=== PATIENT | female | born 1950 | race American Indian/Alaskan Native ===

== ENCOUNTER 2023-04-05 10:44 | Emergency (ER) | payer MEDICARE, MEDICAID, SELFPAY ==
--- NOTE | 2023-04-05 10:45 | DI.RAD_ITS ---
Exam(s) XR CHEST 2V PA LATERAL EXAM: XR CHEST 2V PA LATERAL CLINICAL HISTORY: Possible Aspiration TECHNIQUE: 2D digital imaging was performed. COMPARISON: No exams were available for comparison FINDINGS: Exam limited by body habitus, positioning and under penetration. Lungs not well inflated on the lat eral view. HEART: Normal size. Aorta: Not dilated. PULMONARY VASCULATURE: Normal. LUNGS: Calcification left mid chest. No infiltrate or pulmonary edema. PLEURAL SPACE: No pleural effusion or pneumothorax. BONE:Spine not well seen. Old right proximal humeral fracture. IMPRESSION: Limited exam. No acute abnormality. DATA REPOSITORY: RADIATION DOSE DELIVERED:
[2023-04-05 10:48] VITALS: BP 180/87; PULSE 83; RESP 18; TEMP 37.1; O2SAT 95
--- NOTE | 2023-04-05 10:48 | ED.GENADUL_ITS ---
Discharge Plan Disposition Patient Disposition: Senior Living Facility(SNF) Discharge Details Clinical Impression: Cough Primary Care Provider: Yohana Ferrari ED Provider: Varsha Gutierrez [place] Meds and New Rx's Prescriptions: No Action acetaminophen 650 mg Tablet 1,300 mg PO TID aspirin [Aspir-81] 81 mg Tablet,Delayed Release (Dr/Ec) 81 mg PO DAILY calcium carbonate [Antacid (calcium carbonate)] 200 mg calcium (500 mg) Tablet,Chewable 200 mg PO TID Rx Instructions: with meals guaifenesin 600 mg Tablet Extended Release 600 mg PO BID haloperidol 0.5 mg Tablet 0.5 mg PO Q6H PRN ipratropium-albuterol [DuoNeb] 0.5 mg-3 mg(2.5 mg base)/3 mL Solution For Nebulization 3 ml INHALATION Q6H PRN lidocaine [Lidoderm] 5 % Adhesive Patch,Medicated 1 patch transdermal DAILY lisinopril 5 mg tablet 5 mg PO DAILY metoprolol tartrate 50 mg Tablet 50 mg PO BID sennosides-docusate sodium [Senokot-S] 8.6-50 mg Tablet 1 tab PO BID albuterol sulfate 90 mcg/actuation Hfa Aerosol Inhaler 2 puff INHALATION Q4H PRN atorvastatin 20 mg tablet 20 mg PO DAILY citalopram 20 mg Tablet 20 mg PO DAILY fluticasone propion-salmeterol 250-50 mcg/dose Blister With Device 1 ea INHALATION BID hydralazine 10 mg tablet 10 mg PO TID hydroxyzine HCl 50 mg Tablet 50 mg PO BID lamotrigine 250 mg tablet extended release 24hr 250 mg PO DAILY loperamide 2 mg Capsule 2 mg PO Q6H PRN lorazepam 1 mg tablet 1 mg PO Q6H Muscle Rub 15-10 % Cream 1 applic TOPICAL TID PRN nystatin 100,000 unit/gram Cream 1 applic TOPICAL BID olanzapine 5 mg Tablet 10 mg PO BID ondansetron 4 mg Tablet,Disintegrating 4 mg PO Q6H PRN pantoprazole 20 mg tablet,delayed release (DR/EC) 20 mg PO BID Patient Comments: take 1 tablet by mouth twice a day polyethylene glycol 3350 17 gram/dose Powder 17 g PO DAILY prazosin 2 mg Capsule 4 mg PO HS quetiapine 200 mg tablet 200 mg PO BID levothyroxine [Synthroid] 125 mcg Tablet 125 mcg PO QAM Discharge Instructions Instructions: Acute Cough (ED) Additional Instructions: At this time x-ray shows no evidence of aspiration no foreign body. Patient is remained hemodynamically stable throughout stay. Follow up with primary care provider in 3-5 days. Return to ED sooner if any worsening or concerns. Increase oral fluids. Referrals: Yohana Ferrari [Primary Care Provider] - Medical Decision Making Patient is a transfer from the [facility] for possible aspiration of a cough drop prior to arrival. Patient denies that she choked on the cough drop. She is in no respiratory distress, is not coughing denies having a cough, lung sounds are clear to auscultation bilaterally. X-ray two-view ordered which is within normal limits and nothing acute. Patient to be transferred back to the [facility] via EMS. This text was generated using [employer] system, please disregard any oddities of phrase or misspellings. Imaging Data Radiologic Study: Imaging: X-Ray Radiologist's impression: EXAM: XR CHEST 2V PA LATERAL CLINICAL HISTORY: Possible Aspiration TECHNIQUE: 2D digital imaging was performed. COMPARISON: No exams were available for comparison FINDINGS: Exam limited by body habitus, positioning and under penetration. Lungs not well inflated on the lateral view. HEART: Normal size. Aorta: Not dilated. PULMONARY VASCULATURE: Normal. LUNGS: Calcification left mid chest. No infiltrate or pulmonary edema. PLEURAL SPACE: No pleural effusion or pneumothorax. BONE:Spine not well seen. Old right proximal humeral fracture. IMPRESSION: Limited exam. No acute abnormality. HPI General Mode of arrival: EMS . Date/Time Provider Initiated Documentation: 04/05/23 10:48 . Limitations to Documentation: no limitations . Information obtained by: patient, RN/MD, EMS, RN notes reviewed and old records reviewed . HPI Narrative: 72-year-old female presents via EMS from the [facility] with chief complaint of possible choking on cough drop prior to arrival. Patient denies choking on a cough drop. She is in no respiratory distress at this time. She denies cough. They are requesting a chest x-ray. Vital signs are stable. Related Data Home Medications Medication Instructions Recorded Confirmed acetaminophen 650 mg tablet 1,300 mg PO TID 04/05/23 04/05/23 albuterol sulfate 90 mcg/actuation 2 puff inhalation Q4H PRN 04/05/23 04/05/23 aerosol inhaler aspirin 81 mg tablet,delayed 81 mg PO DAILY 04/05/23 04/05/23 release atorvastatin 20 mg tablet 20 mg PO DAILY 04/05/23 04/05/23 calcium carbonate 200 mg calcium 200 mg PO TID 04/05/23 04/05/23 (500 mg) chewable tablet (Antacid (calcium carbonate)) citalopram 20 mg tablet 20 mg PO DAILY 04/05/23 04/05/23 fluticasone 250 mcg-salmeterol 50 1 ea inhalation BID 04/05/23 04/05/23 mcg/dose blistr powdr for inhalation guaifenesin 600 mg tablet,extended 600 mg PO BID 04/05/23 04/05/23 release haloperidol 0.5 mg tablet 0.5 mg PO Q6H PRN 04/05/23 04/05/23 hydralazine 10 mg tablet 10 mg PO TID 04/05/23 04/05/23 hydroxyzine HCl 50 mg tablet 50 mg PO BID 04/05/23 04/05/23 ipratropium 0.5 mg-albuterol 3 mg 3 ml inhalation Q6H PRN 04/05/23 04/05/23 (2.5 mg base)/3 mL nebulization soln lamotrigine 250 mg tablet,extended 250 mg PO DAILY 04/05/23 04/05/23 release 24 hr levothyroxine 125 mcg tablet 125 mcg PO QAM 04/05/23 04/05/23 (Synthroid) lidocaine 5 % topical patch 1 patch transdermal DAILY 04/05/23 04/05/23 (Lidoderm) lisinopril 5 mg tablet 5 mg PO DAILY 04/05/23 04/05/23 loperamide 2 mg capsule 2 mg PO Q6H PRN 04/05/23 04/05/23 lorazepam 1 mg tablet 1 mg PO Q6H 04/05/23 04/05/23 methyl salicylate 15 %-menthol 10 1 applic topical TID PRN 04/05/23 04/05/23 % topical cream (Muscle Rub) metoprolol tartrate 50 mg tablet 50 mg PO BID 04/05/23 04/05/23 nystatin 100,000 unit/gram topical 1 applic topical BID 04/05/23 04/05/23 cream olanzapine 5 mg tablet 10 mg PO BID 04/05/23 04/05/23 ondansetron 4 mg disintegrating 4 mg PO Q6H PRN 04/05/23 04/05/23 tablet pantoprazole 20 mg tablet,delayed 20 mg PO BID 04/05/23 04/05/23 release polyethylene glycol 3350 17 17 g PO DAILY 04/05/23 04/05/23 gram/dose oral powder prazosin 2 mg capsule 4 mg PO HS 04/05/23 04/05/23 quetiapine 200 mg tablet 200 mg PO BID 04/05/23 04/05/23 sennosides 8.6 mg-docusate sodium 1 tab PO BID 04/05/23 04/05/23 50 mg tablet (Senokot-S) Allergies Allergy/AdvReac Type Severity Reaction Status Date / Time amoxicillin AdvReac Unknown Unverified 04/05/23 11:25 aspirin AdvReac Unknown Unverified 04/05/23 11:30 butalbital AdvReac Unknown Unverified 04/05/23 11:28 codeine AdvReac Unknown Unverified 04/05/23 11:29 erythromycin base AdvReac Unknown Unverified 04/05/23 11:29 mirtazapine AdvReac Unknown Unverified 04/05/23 11:29 NSAIDS (Non-Steroidal AdvReac Unknown Unverified 04/05/23 11:30 Anti-Inflamma Sulfa (Sulfonamide AdvReac Unknown Unverified 04/05/23 11:31 Antibiotics) General Stated Complaint: RespSymp FANTASMA: 4 Review of Systems All systems reviewed & are unremarkable except as noted in HPI and below Respiratory Respiratory: Reports as per HPI PFSH All Active Problems (Updated 04/05/23 @ 11:33 by Varsha Gutierrez NP) Cough (Acute) Social History Smoking/Tobacco Use Status: Never Smoking risk assessment performed?: Yes Alcohol Intake: never Substance use type: does not use Exam Narrative Exam Narrative: Constitutional: Alert and oriented x3. Appears stated age. Normal body habitus. Head: Normocephalic, no trauma. Eyes: Pupils PERRL, Red reflex noted, EOM's intact. Eyelids symmetrical without lesions, discharge, or swelling. ENT: Bilateral TM's WNL, External ear normal to inspection, no mastoid TTP, swelling, or erythema, Nasal turbinates WNL, no nasal discharge. Normal dentition, Posterior pharynx WNL, no exudate. Chest: RRR, Normal S1, S2, distal pulses intact. Resp: Lungs clear to auscultation bilaterally, no wheezes, rales, or rhonchi. Abdomen: Soft, non-distended, Normoactive bowel sounds all 4 quads. Musculoskeletal: Normal gait, 5/5 strength to all four extremities. Skin: No suspicious rashes or lesions. Capillary refill less than 2 sec. Neurologic: Cranial nerves II-XII intact. Alert and oriented x 3. Motor: No deficits noted. Sensory: Intact bilaterally all 4 extremities. Reflexes: DTR's intact bilaterally.. Hematologic/Lymphatic: No ecchymosis, no lymphadenopathy. Course Vital Signs Vital signs: Respiratory Effort Normal, Non-Labored 04/05/23 10:48
== END 2023-04-05 11:40 | disposition skilled nursing facility (03) ==
PROVIDERS: Emergency Provider Registered Nurse Emergency; PCP Legal Medicine
DX: R05.9 Cough, unspecified (principal)
CPT/HCPCS: 80053; 82306; 99282; 71046; 82607; 82728; 82746; 83036; 83540; 83550; 83735; 84443; 85025; 99283

== ENCOUNTER 2023-04-05 17:39 | Outpatient (REF) | payer MEDICARE, MEDICAID, SELFPAY ==
[2023-04-05 17:52] LABS: Abs Immature Grans 0.03 10^3/uL (0.0-0.06); Absolute Basophil Count 0.03 10^3/uL (0.0-0.2); Absolute Eosinophil Count 0.02 10^3/uL (0.0-0.7); Absolute Lymphocyte Count 0.97 10^3/uL (1.2-3.4); Absolute Monocyte Count 0.39 10^3/uL (0.1-0.8); Absolute Neutrophil Count 5.74 10^3/uL (1.2-6.7); Basophils % 0.4; Eosinophils % 0.3; HCT 30.8 % (36.0-46.0); HGB 10.3 g/dL (11.2-15.7); Immature Grans % 0.4; Lymphocytes % 13.5; MCH 29.9 pg (27.0-33.0); MCHC 33.4 % (32.0-36.0); MCV 89 fL (80-95); MPV 8.2 fL (8.0-11.0); Monocytes % 5.4; Platelet Count 414 10^3/uL (130-400); RBC 3.45 10^6/uL (3.93-5.22); RDW 12.5 % (11.7-14.6); WBC 7.18 10^3/uL (4.4-10.8)
[2023-04-05 18:18] LABS: Hemoglobin A1C 5.9 % (<5.7)
[2023-04-05 18:21] LABS: Iron 74 ug/dL (50-170); Total Iron Binding Capacity 289 ug/dL (250-450); Transferrin Sat 26 % (15-50)
[2023-04-05 18:44] LABS: Vitamin D 25 Total 7.2 ng/mL (30-100)
[2023-04-05 18:46] LABS: ALT 19 U/L (14-59); AST 12 U/L (15-37); Albumin 4.1 g/dL (3.4-5.0); Alkaline Phosphatase 89 U/L (46-116); Anion Gap 8.7 mmol/L (3-11); BUN 11 mg/dL (7-18); Bilirubin, Total 0.4 mg/dL (0.2-1.0); CO2 27.3 mmol/L (21.0-32.0); CREATININE 0.8 mg/dL (0.55-1.02); Calcium 9.6 mg/dL (8.5-10.1); Chloride 96 mmol/L (98-107); Estimated GFR 78.72 (mL/min/1.73m2); Ferritin 149 ng/mL (8-252); Folate 17.4 ng/mL (8.6-20.0); Glucose 135 mg/dL (74-106); Magnesium 1.8 mg/dL (1.8-2.4); Potassium 4.9 mmol/L (3.5-5.1); Sodium 132 mmol/L (136-145); TSH (W/Ref FT4) 1.06 uIU/mL (0.36-3.74); Total Protein 7.3 g/dL (6.4-8.2); Vitamin B12 463 pg/mL (193-986)
== END 2023-04-05 17:40 | disposition home or self-care (01) ==
LOC: NCHCN 17:39
PROVIDERS: PCP Legal Medicine; Visit Provider Nurse Practitioner Gerontology
DX: D52.9 Folate deficiency anemia, unspecified (principal); R73.09 Other abnormal glucose; R53.82 Chronic fatigue, unspecified; E55.9 Vitamin D deficiency, unspecified; I11.0 Hypertensive heart disease with heart failure; D51.9 Vitamin B12 deficiency anemia, unspecified
CPT/HCPCS: 80053; 82306; 82607; 82728; 82746; 83036; 83540; 83550; 83735; 84443; 85025

== ENCOUNTER 2023-05-01 19:06 | Outpatient (REF) | payer MEDICARE, MEDICAID, SELFPAY ==
[2023-05-01 19:53] LABS: Abs Immature Grans 0.02 10^3/uL (0.0-0.06); Absolute Basophil Count 0.03 10^3/uL (0.0-0.2); Absolute Eosinophil Count 0.09 10^3/uL (0.0-0.7); Absolute Lymphocyte Count 1.57 10^3/uL (1.2-3.4); Absolute Monocyte Count 0.43 10^3/uL (0.1-0.8); Absolute Neutrophil Count 3.25 10^3/uL (1.2-6.7); Basophils % 0.6; Eosinophils % 1.7; HCT 29.8 % (36.0-46.0); HGB 9.4 g/dL (11.2-15.7); Immature Grans % 0.4; Lymphocytes % 29.1; MCH 29.8 pg (27.0-33.0); MCHC 31.5 % (32.0-36.0); MCV 95 fL (80-95); Neutrophils % 60.2; Platelet Count 294 10^3/uL (130-400); RBC 3.15 10^6/uL (3.93-5.22); RDW 13.1 % (11.7-14.6); RDW-SD 45.1 fL; WBC 5.39 10^3/uL (4.4-10.8)
== END 2023-05-01 19:07 | disposition home or self-care (01) ==
LOC: LBN 19:06
PROVIDERS: PCP Legal Medicine; Visit Provider Nurse Practitioner Gerontology
DX: J44.9 Chronic obstructive pulmonary disease, unspecified (principal); Z29.8 Encounter for other specified prophylactic measures; R53.82 Chronic fatigue, unspecified; D52.9 Folate deficiency anemia, unspecified
CPT/HCPCS: 85025

== ENCOUNTER 2023-07-04 15:14 | Outpatient (REF) | payer MEDICARE, MEDICAID, SELFPAY ==
[2023-07-04 21:10] LABS: ALT 15 U/L (14-59); AST 11 U/L (15-37); Alkaline Phosphatase 95 U/L (46-116); Anion Gap 8.4 mmol/L (3-11); BUN 10 mg/dL (7-18); Bilirubin, Total 0.3 mg/dL (0.2-1.0); CO2 27.6 mmol/L (21.0-32.0); CREATININE 0.9 mg/dL (0.55-1.02); Calcium 8.9 mg/dL (8.5-10.1); Chloride 108 mmol/L (98-107); Estimated GFR 68.35 (mL/min/1.73m2); Glucose 137 mg/dL (74-106); NT-proBNP 701 pg/mL (<300); Potassium 4.2 mmol/L (3.5-5.1); Sodium 144 mmol/L (136-145); Total Protein 5.7 g/dL (6.4-8.2)
[2023-07-04 22:25] LABS: Vitamin D 25 Total 17.6 ng/mL (30-100)
== END 2023-07-04 15:15 | disposition home or self-care (01) ==
LOC: LBN 15:14
PROVIDERS: PCP Legal Medicine; Visit Provider Nurse Practitioner Gerontology
DX: I50.9 Heart failure, unspecified (principal); G89.4 Chronic pain syndrome; E55.9 Vitamin D deficiency, unspecified; R79.89 Other specified abnormal findings of blood chemistry
CPT/HCPCS: 80053; 82306; 83880

== ENCOUNTER 2023-09-27 19:37 | Outpatient (REF) | payer MEDICARE, MEDICAID, SELFPAY ==
[2023-09-27 18:32] LABS: Abs Immature Grans 0.02 10^3/uL (0.0-0.06); Absolute Basophil Count 0.04 10^3/uL (0.0-0.2); Absolute Eosinophil Count 0.02 10^3/uL (0.0-0.7); Absolute Lymphocyte Count 1.21 10^3/uL (1.2-3.4); Absolute Monocyte Count 0.39 10^3/uL (0.1-0.8); Absolute Neutrophil Count 3.14 10^3/uL (1.2-6.7); Basophils % 0.8; Eosinophils % 0.4; HCT 36.2 % (36.0-46.0); HGB 11.5 g/dL (11.2-15.7); Immature Grans % 0.4; Lymphocytes % 25.1; MCH 28.8 pg (27.0-33.0); MCHC 31.8 % (32.0-36.0); MCV 91 fL (80-95); Monocytes % 8.1; Neutrophils % 65.2; RBC 3.99 10^6/uL (3.93-5.22); RDW 13.2 % (11.7-14.6); WBC 4.82 10^3/uL (4.4-10.8)
[2023-09-27 19:00] LABS: Platelet Count 342 10^3/uL (130-400)
[2023-09-27 19:35] LABS: ALT 18 U/L (14-59); AST 15 U/L (15-37); Albumin 4.1 g/dL (3.4-5.0); Alkaline Phosphatase 110 U/L (46-116); Anion Gap 11.5 mmol/L (3-11); BUN 16 mg/dL (7-18); Bilirubin, Total 0.4 mg/dL (0.2-1.0); CO2 25.5 mmol/L (21.0-32.0); Calcium 9.6 mg/dL (8.5-10.1); Chloride 108 mmol/L (98-107); Estimated GFR 59.86 (mL/min/1.73m2); Glucose 112 mg/dL (74-106); NT-proBNP 635 pg/mL (<300); Potassium 3.7 mmol/L (3.5-5.1); Sodium 145 mmol/L (136-145); Total Protein 7.5 g/dL (6.4-8.2)
== END 2023-09-27 19:38 | disposition home or self-care (01) ==
LOC: LBN 19:37
PROVIDERS: PCP Legal Medicine; Visit Provider Nurse Practitioner Gerontology
DX: G89.4 Chronic pain syndrome (principal); J44.9 Chronic obstructive pulmonary disease, unspecified; E78.5 Hyperlipidemia, unspecified; E11.9 Type 2 diabetes mellitus without complications; E78.49 Other hyperlipidemia
CPT/HCPCS: 80053; 83880; 85025

== ENCOUNTER 2023-12-11 13:16 | Emergency (ER) | payer MEDICARE, MEDICAID, SELFPAY ==
[2023-12-11 13:15] VITALS: BP 135/53; PULSE 75; RESP 16; TEMP 36.8; O2SAT 97
[2023-12-11 16:40] VITALS: BP 139/71; PULSE 79; RESP 14; TEMP 37; O2SAT 94
--- NOTE | 2023-12-11 16:51 | ED.GENADUL_ITS ---
HPI General Mode of arrival: EMS . Date/Time Provider Initiated Documentation: 12/11/23 13:59 . Limitations to Documentation: no limitations . Information obtained by: patient . History of Present Illness 73 year old F presents to the emergency department with the chief complaint of choked on beets earlier, described as mild, Patient started experiencing this hour(s) (4) and it has been now resolved. No relieving factors improve symptom(s), No exacerbating factors reported . Patient notes no other symptoms.; denies chest pain, fever/chills, nausea/vomiting and shortness of breath. Patient did receive the following treatments prior to arrival, none Related Data Home Medications Medication Instructions Recorded Confirmed acetaminophen 650 mg tablet 1,300 mg PO TID 04/05/23 11/23/23 albuterol sulfate 90 mcg/actuation 2 puff inhalation Q4H PRN 04/05/23 11/23/23 aerosol inhaler aspirin 81 mg tablet,delayed 81 mg PO DAILY 04/05/23 11/23/23 release atorvastatin 20 mg tablet 20 mg PO DAILY 04/05/23 11/23/23 calcium carbonate 200 mg calcium 200 mg PO TID 04/05/23 11/23/23 (500 mg) chewable tablet (Antacid (calcium carbonate)) citalopram 20 mg tablet 20 mg PO DAILY 04/05/23 11/23/23 fluticasone 250 mcg-salmeterol 50 1 ea inhalation BID 04/05/23 11/23/23 mcg/dose blistr powdr for inhalation guaifenesin 600 mg tablet,extended 600 mg PO BID 04/05/23 11/23/23 release haloperidol 0.5 mg tablet 0.5 mg PO Q6H PRN 04/05/23 11/23/23 hydralazine 10 mg tablet 10 mg PO TID 04/05/23 11/23/23 hydroxyzine HCl 50 mg tablet 50 mg PO BID 04/05/23 11/23/23 ipratropium 0.5 mg-albuterol 3 mg 3 ml inhalation Q6H PRN 04/05/23 11/23/23 (2.5 mg base)/3 mL nebulization soln lamotrigine 250 mg tablet,extended 250 mg PO DAILY 04/05/23 11/23/23 release 24 hr levothyroxine 125 mcg tablet 125 mcg PO QAM 04/05/23 11/23/23 (Synthroid) lidocaine 5 % topical patch 1 patch transdermal DAILY 04/05/23 11/23/23 (Lidoderm) lisinopril 5 mg tablet 5 mg PO DAILY 04/05/23 11/23/23 loperamide 2 mg capsule 2 mg PO Q6H PRN 04/05/23 11/23/23 lorazepam 1 mg tablet 1 mg PO Q6H 04/05/23 11/23/23 methyl salicylate 15 %-menthol 10 1 applic topical TID PRN 04/05/23 11/23/23 % topical cream (Muscle Rub) metoprolol tartrate 50 mg tablet 50 mg PO BID 04/05/23 11/23/23 nystatin 100,000 unit/gram topical 1 applic topical BID 04/05/23 11/23/23 cream olanzapine 5 mg tablet 10 mg PO BID 04/05/23 11/23/23 ondansetron 4 mg disintegrating 4 mg PO Q6H PRN 04/05/23 11/23/23 tablet pantoprazole 20 mg tablet,delayed 20 mg PO BID 04/05/23 11/23/23 release polyethylene glycol 3350 17 17 g PO DAILY 04/05/23 11/23/23 gram/dose oral powder prazosin 2 mg capsule 4 mg PO HS 04/05/23 11/23/23 quetiapine 200 mg tablet 200 mg PO BID 04/05/23 11/23/23 sennosides 8.6 mg-docusate sodium 1 tab PO BID 04/05/23 11/23/23 50 mg tablet (Senokot-S) Allergies Allergy/AdvReac Type Severity Reaction Status Date / Time amoxicillin AdvReac Unknown Unverified 12/11/23 13:18 aspirin AdvReac Unknown Unverified 12/11/23 13:18 butalbital AdvReac Unknown Unverified 12/11/23 13:18 codeine AdvReac Unknown Unverified 12/11/23 13:18 erythromycin base AdvReac Unknown Unverified 12/11/23 13:18 mirtazapine AdvReac Unknown Unverified 12/11/23 13:18 NSAIDS (Non-Steroidal AdvReac Unknown Unverified 12/11/23 13:18 Anti-Inflamma Sulfa (Sulfonamide AdvReac Unknown Unverified 12/11/23 13:18 Antibiotics) General Stated Complaint: GenMedical FANTASMA: 4 Review of Systems All systems reviewed & are unremarkable except as noted in HPI and below Constitutional Constitutional: Denies chills, Denies fever(s) and Denies weakness Cardiovascular Cardiovascular: Denies chest pain and Denies dyspnea Respiratory Respiratory: Denies cough and Denies dyspnea Gastrointestinal Gastrointestinal: Denies abdominal pain, Denies nausea and Denies vomiting Integumentary/Breasts Skin/Breast: Denies rash Neurologic Neurologic: Denies weakness Exam Const General: no acute distress Orientation: alert HENNM Head: normal to inspection Ears: external ears normal General nose exam: external nose normal Eyes General: appearance normal, both eyes and all related structures Neck Neck: normal visual inspection Resp Effort & Inspection: normal respiratory effort and able to speak in complete sentences Cardio Rate: regular rate Skin General skin exam: no rashes or lesions noted Neuro General: patient alert and patient oriented x3 Extrem General: normal to inspection Psych Mental Status: mental status grossly normal Course Vital Signs Vital signs: Vital Signs Temperature 36.8 C 12/11/23 13:15 Pulse 75 12/11/23 13:15 Respiratory Rate 16 12/11/23 13:15 Blood Pressure 135/53 L 12/11/23 13:15 Pulse Oximetry 97 12/11/23 13:15 Temperature 37.0 C 12/11/23 16:40 Temperature Source Tympanic 12/11/23 16:40 Pulse 79 12/11/23 16:40 Respiratory Rate 14 12/11/23 16:40 Blood Pressure 139/71 12/11/23 16:40 Pulse Oximetry 94 12/11/23 16:40 Oxygen Delivery Method Room Air 12/11/23 16:40 Oxygen Flow Rate 0 12/11/23 16:40 Medical Decision Making 73 yo female with hx of hld, who has trouble swallowing and is on a soft diet and resides at the [facility], comes in after she was eating beets and choked and had trouble swallowing. She denies dyspnea, abdominal pain, chest pain, cough. She waited in the wait room due to capacity for a few hours. She denies any symptoms and requests to go back to the [facility]. She has clear lungs, soft abdomen, is drinking water here without any issues so doubt impaction or retained foreign body, do not feel imaging indicated. Will d/c back to the [facility] Differential Diagnosis Differential Diagnosis: choking episode, dysphagia Quality:SDOH Health Related Social Needs: No Data to Display PFSH All Active Problems (Updated 12/11/23 @ 16:57 by Jasper Manuel MD) Swallowing problem (Acute) Social History Smoking/Tobacco Use Status: Never Smoking risk assessment performed?: Yes Alcohol Intake: never Substance use type: does not use Discharge Plan Disposition Patient Disposition: [facility](SNF) Condition: Stable Discharge Details Clinical Impression: Swallowing problem Primary Care Provider: Yohana Ferrari ED Provider: Jasper Manuel Home Meds and New Rx's Prescriptions: Continued acetaminophen 650 mg Tablet 1,300 mg PO TID aspirin 81 mg Tablet,Delayed Release (Dr/Ec) 81 mg PO DAILY calcium carbonate [Antacid (calcium carbonate)] 200 mg calcium (500 mg) Tablet,Chewable 200 mg PO TID Rx Instructions: with meals guaifenesin 600 mg Tablet Extended Release 600 mg PO BID haloperidol 0.5 mg Tablet 0.5 mg PO Q6H PRN ipratropium-albuterol 0.5 mg-3 mg(2.5 mg base)/3 mL Solution For Nebulization 3 ml INHALATION Q6H PRN lidocaine [Lidoderm] 5 % Adhesive Patch,Medicated 1 patch transdermal DAILY lisinopril 5 mg tablet 5 mg PO DAILY metoprolol tartrate 50 mg Tablet 50 mg PO BID sennosides-docusate sodium [Senokot-S] 8.6-50 mg Tablet 1 tab PO BID albuterol sulfate 90 mcg/actuation Hfa Aerosol Inhaler 2 puff INHALATION Q4H PRN atorvastatin 20 mg tablet 20 mg PO DAILY citalopram 20 mg Tablet 20 mg PO DAILY fluticasone propion-salmeterol 250-50 mcg/dose Blister With Device 1 ea INHALATION BID hydralazine 10 mg tablet 10 mg PO TID hydroxyzine HCl 50 mg Tablet 50 mg PO BID lamotrigine 250 mg tablet extended release 24hr 250 mg PO DAILY loperamide 2 mg Capsule 2 mg PO Q6H PRN lorazepam 1 mg tablet 1 mg PO Q6H Muscle Rub 15-10 % Cream 1 applic TOPICAL TID PRN nystatin 100,000 unit/gram Cream 1 applic TOPICAL BID olanzapine 5 mg Tablet 10 mg PO BID ondansetron 4 mg Tablet,Disintegrating 4 mg PO Q6H PRN pantoprazole 20 mg tablet,delayed release (DR/EC) 20 mg PO BID Patient Comments: take 1 tablet by mouth twice a day polyethylene glycol 3350 17 gram/dose Powder 17 g PO DAILY prazosin 2 mg Capsule 4 mg PO HS quetiapine 200 mg tablet 200 mg PO BID levothyroxine [Synthroid] 125 mcg Tablet 125 mcg PO QAM Discharge Instructions Additional Instructions: follow up with your primary care provider within 1-2 weeks if you feel more ill, have difficulty breathing or persistent vomiting return to the emergency department
[2023-12-11 17:29] VITALS: RESP 18
== END 2023-12-11 17:31 | disposition skilled nursing facility (03) ==
PROVIDERS: Emergency Provider Emergency Medicine; PCP Legal Medicine
DX: R13.10 Dysphagia, unspecified (principal)
CPT/HCPCS: 99281; 99282

== ENCOUNTER 2024-03-25 18:08 | Outpatient (REF) | payer MEDICARE, MEDICAID, SELFPAY ==
[2024-03-25 19:22] LABS: TSH (W/Ref FT4) 0.88 uIU/mL (0.36-3.74)
[2024-03-25 20:14] LABS: Vitamin D 25 Total 14.2 ng/mL (30-100)
== END 2024-03-25 18:09 | disposition home or self-care (01) ==
LOC: LBN 18:08
PROVIDERS: PCP Legal Medicine; Visit Provider Nurse Practitioner Gerontology
DX: E03.9 Hypothyroidism, unspecified (principal); E55.9 Vitamin D deficiency, unspecified; R53.82 Chronic fatigue, unspecified; G89.4 Chronic pain syndrome
CPT/HCPCS: 82306; 84443

== ENCOUNTER 2024-12-23 17:44 | Outpatient (REF) | payer MEDICARE, MEDICAID, SELFPAY ==
[2024-12-23 19:11] LABS: Abs Immature Grans 0.03 10^3/uL (0.0-0.06); Absolute Basophil Count 0.06 10^3/uL (0.0-0.2); Absolute Eosinophil Count 0.18 10^3/uL (0.0-0.7); Absolute Lymphocyte Count 1.72 10^3/uL (1.2-3.4); Absolute Monocyte Count 0.61 10^3/uL (0.1-0.8); Absolute Neutrophil Count 3.79 10^3/uL (1.2-6.7); Basophils % 0.9 %; Eosinophils % 2.8 %; HCT 29.5 % (36.0-46.0); HGB 9.3 g/dL (11.2-15.7); Immature Grans % 0.5 %; Lymphocytes % 26.9 %; MCH 29.8 pg (27.0-33.0); MCHC 31.5 % (32.0-36.0); MCV 95 fL (80-95); MPV 8.9 fL (8.0-11.0); Monocytes % 9.5 %; Neutrophils % 59.4 %; Platelet Count 322 10^3/uL (130-400); RBC 3.12 10^6/uL (3.93-5.22); RDW 13.6 % (11.7-14.6); RDW-SD 46.9 fL; WBC 6.39 10^3/uL (4.4-10.8)
[2024-12-23 19:27] LABS: ALT 20 U/L (14-59); AST 13 U/L (15-37); Alkaline Phosphatase 77 U/L (46-116); Anion Gap 5.9 mmol/L (3-11); BUN 11 mg/dL (7-18); Bilirubin, Total 0.25 mg/dL (0.2-1.0); CO2 28.1 mmol/L (21.0-32.0); CREATININE 0.8 mg/dL (0.55-1.02); Calcium 8.5 mg/dL (8.5-10.1); Chloride 105 mmol/L (98-107); Estimated GFR 77.75 (mL/min/1.73m2); Glucose 105 mg/dL (74-106); Potassium 4.6 mmol/L (3.5-5.1); Sodium 139 mmol/L (136-145); Total Protein 5.6 g/dL (6.4-8.2)
[2024-12-26 12:27] LABS: Lamotrigine 3.5 mcg/mL (3.0-15.0)
== END 2024-12-23 17:45 | disposition home or self-care (01) ==
LOC: LBN 17:44
PROVIDERS: PCP Legal Medicine; Visit Provider Nurse Practitioner Gerontology
DX: E87.6 Hypokalemia (principal)
CPT/HCPCS: 80053; 80175; 85025

== ENCOUNTER 2025-02-28 16:40 | Outpatient (REF) | payer MEDICARE, MEDICAID, SELFPAY ==
[2025-02-28 19:30] LABS: Abs Immature Grans 0.06 10^3/uL (0.0-0.06); Absolute Basophil Count 0.03 10^3/uL (0.0-0.2); Absolute Eosinophil Count 0.11 10^3/uL (0.0-0.7); Absolute Lymphocyte Count 1.28 10^3/uL (1.2-3.4); Absolute Monocyte Count 0.69 10^3/uL (0.1-0.8); Absolute Neutrophil Count 8.48 10^3/uL (1.2-6.7); Basophils % 0.3 %; HCT 28.4 % (36.0-46.0); HGB 8.9 g/dL (11.2-15.7); Immature Grans % 0.6 %; MCH 30.9 pg (27.0-33.0); MCHC 31.3 % (32.0-36.0); MCV 99 fL (80-95); MPV 9.2 fL (8.0-11.0); Monocytes % 6.5 %; Neutrophils % 79.6 %; Platelet Count 374 10^3/uL (130-400); RBC 2.88 10^6/uL (3.93-5.22); RDW 15.8 % (11.7-14.6); RDW-SD 56.4 fL; WBC 10.65 10^3/uL (4.4-10.8)
[2025-02-28 19:34] LABS: Bilirubin Small (Negative); Blood Negative (Negative); Clarity Clear (Clear); Glucose Negative (Negative); Ketones 15 mg/dL (Negative); Leukocyte Esterase Negative (Negative); Nitrite Negative (Negative); Specific Gravity 1.025 (1.005-1.025); Urobilinogen 0.2 mg/dL (Up to 0.2)
[2025-02-28 19:55] LABS: ALT 18 U/L (14-59); AST 19 U/L (15-37); Albumin 2.3 g/dL (3.4-5.0); Alkaline Phosphatase 123 U/L (46-116); Anion Gap 11.9 mmol/L (3-11); BUN 47 mg/dL (7-18); Bilirubin, Total 0.3 mg/dL (0.2-1.0); CO2 23.1 mmol/L (21.0-32.0); CREATININE 1.5 mg/dL (0.55-1.02); Calcium 9.3 mg/dL (8.5-10.1); Chloride 107 mmol/L (98-107); Estimated GFR 36.57 (mL/min/1.73m2); Glucose 81 mg/dL (74-106); Magnesium 2.2 mg/dL (1.8-2.4); Potassium 4.7 mmol/L (3.5-5.1); Sodium 142 mmol/L (136-145); TSH (W/Ref FT4) 0.22 uIU/mL (0.36-3.74); Total Protein 5.1 g/dL (6.4-8.2)
[2025-02-28 21:10] LABS: FREE T4 0.96 ng/dL (0.76-1.46)
== END 2025-02-28 16:41 | disposition home or self-care (01) ==
LOC: LBN 16:40
PROVIDERS: PCP Legal Medicine; Visit Provider Nurse Practitioner Gerontology
DX: E03.9 Hypothyroidism, unspecified (principal); N39.0 Urinary tract infection, site not specified; E83.42 Hypomagnesemia; R82.89 Other abnormal findings on cytological and histological examination of urine
CPT/HCPCS: 80053; 81003; 83735; 84439; 84443; 85025; 87086

== ENCOUNTER 2025-03-01 17:30 | Emergency (ER) | payer MEDICARE, MEDICAID, SELFPAY ==
[2025-03-01 17:34] VITALS: BP 110/48; PULSE 85; RESP 20; TEMP 37.1; O2SAT 98
[2025-03-01 17:45] VITALS: BP 110/48; PULSE 85; RESP 20; TEMP 37.1; O2SAT 98
--- NOTE | 2025-03-01 18:15 | RT.EKG_ITS ---
APPROVED REPORT Exam: Resting ECG Reason for Exam: weakness Patient Location: E HR:87 bpm ECG Measurements Heart Rate 87 AXIS KS 154 P 0 QRSd 97 QRS 8 QT 367 T 8 QTc 441 Conclusion Sinus rhythm...normal P axis, V-rate 60- 99 Low voltage, precordial leads...precordial leads <1.0mV
--- NOTE | 2025-03-01 18:15 | DI.CT_ITS ---
Exam(s) CT HEAD WO EXAM: CT HEAD WO CLINICAL HISTORY: mental status change, unknown cause. TECHNIQUE: Imaging Protocol: Axial computed tomography images with coronal and sagittal reformatted images were created and reviewed COMPARISON: No exams were available for comparison FINDINGS: Ventricles and Extra axial spaces: Normal in size and morphology for the patient's age. Hemorrhage: None. Cerebral parenchyma: No evidence of acute infarct or mass. Mild atrophy. Mild white matter changes o f small vessel disease. Midline shift: None. Brainstem/Cerebellum: Normal. Calvarium: Hyperostosis frontalis interna. Prominent venous lakes seen superiorly in the upper right frontal bone. Visualized Paranasal sinuses:Opacification of the left sphenoid sinus. Mastoids: Clear. Soft Tissues: Unremarkable. ORBITS: Unremarkable. PITUITARY: Not enlarged. IMPRESSION: No acute intracranial process. RADIATION DOSE DELIVERED: Total DLP DATA REPOSITORY: All CT scans at this facility are submitted to the National Radiology Data Registry (NRDR) Dose Index Registry (DIR) with the [employer] (A[employer]). RADIATION OPTIMIZATION: All CT scans at this facility use at least one of these dose optimization te chniques: automated exposure control; mA and/or kV adjustment per patient size (includes targeted exa ms where dose is matched to clinical indication); or iterative reconstruction.
--- NOTE | 2025-03-01 18:15 | DI.CT_ITS ---
Exam(s) CT ABDOMEN PELVIS W EXAM: CT ABDOMEN PELVIS W CLINICAL HISTORY: abdominal pain, acute, nonlocalized. TECHNIQUE: Imaging Protocol: Axial computed tomography images with coronal and sagittal reformatted images were created and reviewed CONTRAST MATERIAL: Intravenous: Omnipaque 350 Contrast volume:75 ml Oral: no COMPARISON: No exams were available for comparison FINDINGS: ABDOMEN and PELVIS: Exam is limited by artifact secondary to patient arm position and artifact due to surgical clips in t he right upper quadrant. Lung Bases: No acute findings. Small to moderate size hiatal hernia extending posterior and to the r ight midline. Liver: Normal density. No suspicious mass. Gallbladder and biliary tract: Cholecystectomy. Mild biliary dilation. Pancreas: Normal density. Moderate atrophy. No abnormal calcifications or inflammatory process. No evidence of mass. Spleen: Normal. Kidneys: Normal size, contour and axis. No radiodense stones. No obstructive uropathy. No suspicious masses seen. Adrenal glands: No masses seen. Vasculature: Abdominal aorta non-dilated. Soft tissues: Dehiscence of the anterior abdominal wall without naun hernia. Bladder: No gross wall thickening. No calculi.No focal mass. Bowel: Large quantity of stool noted with distending the rectum consistent with fecal impaction. Mod erate quantity of stool proximally. No small-bowel obstruction. No bowel wall thickening. Appendix normal. Peritoneal cavity: No ascites. No focal collection. No mesenteric inflammatory response. No free air . Bones: Right hip prosthesis. Moderate L1 compression fracture with some retropulsion of the superior endplate into the central canal causing [id number] central canal stenosis. Reproductive organs: Hysterectomy. Lymph nodes: No pathologically enlarged lymph nodes. IMPRESSION:: Large quantity of stool distending the rectum consistent with fecal impaction. Moderat e stool elsewhere. Moderate L1 compression fracture. RADIATION DOSE DELIVERED: Total DLP DATA REPOSITORY: All CT scans at this facility are submitted to the National Radiology Data Registry (NRDR) Dose Index Registry (DIR) with the [employer] (ACR). RADIATION OPTIMIZATION: All CT scans at this facility use at least one of these dose optimization te chniques: automated exposure control; mA and/or kV adjustment per patient size (includes targeted exa ms where dose is matched to clinical indication); or iterative reconstruction.
--- NOTE | 2025-03-01 18:31 | ED.GENADUL_ITS ---
Discharge Plan Disposition Patient Disposition: Snf Facility(SNF) Condition: Good Discharge Details Chief Complaint: AMS/LOC Clinical Impression: Constipation, Abdominal pain Primary Care Provider: Yohana Ferrari ED Provider: Omkar Manuel [place] Meds and New Rx's Prescriptions: No Action guaifenesin [Mucinex] 600 mg tablet extended release 12hr 600 mg PO BID PRN cholecalciferol (vitamin D3) [Thera-D] 50 mcg (2,000 unit) tablet 50 mcg PO DAILY metoprolol tartrate 25 mg tablet 25 mg PO BID lactulose 10 gram/15 mL solution 20 g PO BID hydrocodone-acetaminophen 5-325 mg tablet 1 tab PO BID acetaminophen 650 mg Tablet 325 mg PO Q6H aspirin 81 mg Tablet,Delayed Release (Dr/Ec) 81 mg PO DAILY calcium carbonate [Antacid (calcium carbonate)] 200 mg calcium (500 mg) Tablet,Chewable 200 mg PO TID Rx Instructions: with meals guaifenesin 600 mg Tablet Extended Release 600 mg PO BID haloperidol 0.5 mg Tablet 0.5 mg PO Q6H PRN ipratropium-albuterol 0.5 mg-3 mg(2.5 mg base)/3 mL Solution For Nebulization 3 ml INHALATION Q6H PRN lidocaine [Lidoderm] 5 % Adhesive Patch,Medicated 1 patch transdermal DAILY lisinopril 5 mg tablet 5 mg PO DAILY metoprolol tartrate 50 mg Tablet 50 mg PO BID sennosides-docusate sodium [Senokot-S] 8.6-50 mg Tablet 1 tab PO BID albuterol sulfate 90 mcg/actuation Hfa Aerosol Inhaler 2 puff INHALATION Q4H PRN atorvastatin 20 mg tablet 20 mg PO DAILY citalopram 20 mg Tablet 20 mg PO DAILY fluticasone propion-salmeterol 250-50 mcg/dose Blister With Device 1 ea INHALATION BID hydralazine 10 mg tablet 10 mg PO TID hydroxyzine HCl 50 mg Tablet 10 mg PO TID lamotrigine 250 mg tablet extended release 24hr 125 mg PO DAILY loperamide 2 mg Capsule 2 mg PO Q6H PRN lorazepam 1 mg tablet 0.5 mg PO .COMPLEX Rx Instructions: 0.5 mg orally bedtime; Muscle Rub 15-10 % Cream 1 applic TOPICAL TID PRN nystatin 100,000 unit/gram Cream 1 applic TOPICAL BID olanzapine 5 mg Tablet 10 mg PO BID ondansetron 4 mg Tablet,Disintegrating 4 mg PO Q6H PRN pantoprazole 20 mg tablet,delayed release (DR/EC) 20 mg PO BID Patient Comments: take 1 tablet by mouth twice a day polyethylene glycol 3350 17 gram/dose Powder 17 g PO DAILY prazosin 2 mg Capsule 4 mg PO HS quetiapine 200 mg tablet 200 mg PO BID levothyroxine [Synthroid] 125 mcg Tablet 125 mcg PO QAM Discharge Instructions Additional Instructions: You were seen in the emergency department for nausea vomiting and abdominal pain. We performed labs and a CAT scan your head that were unremarkable. Your EKG was unremarkable. Your CAT scan shows significant constipation. You need to start taking a capful of MiraLAX twice a day. You should also be taking [id number] senna/Colace to help with the constipation. Your nursing f acility and primary care doctor can recommend additional medications for constipation. You can also try enemas at your facility. Please return here if you have any other concerns. Follow-up with your primary care doctor. Referrals: Yohana Ferrari [Primary Care Provider] - [facility] General Mode of arrival: EMS . Date/Time Provider Initiated Documentation: 03/01/25 17:31 . Information obtained by: patient, family, EMS, RN notes reviewed and old records reviewed . 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 Been going on all week. Has been getting worse. Apparently the facility said that she is comfort measures only but patient and the family member are not aware of this. Apparently at her neurologic baseline. The was worried she was not eating and drinking at the facility and had her sent here. Says she is acting more normal now but has been complaining of abdominal pain throughout the week as well as nausea and not eating and drinking. thinks she is weak because of this. Denying any other complaints. Related Data Home Medications ?Medication ?Instructions ?Recorded ?Confirmed acetaminophen 650 mg tablet 325 mg PO Q6H 04/05/23 03/01/25 albuterol sulfate 90 mcg/actuation 2 puff inhalation Q4H PRN 04/05/23 03/01/25 aerosol inhaler aspirin 81 mg tablet,delayed 81 mg PO DAILY 04/05/23 03/01/25 release atorvastatin 20 mg tablet 20 mg PO DAILY 04/05/23 03/01/25 calcium carbonate (Antacid 200 mg PO TID 04/05/23 03/01/25 (calcium carbonate)) citalopram 20 mg tablet 20 mg PO DAILY 04/05/23 03/01/25 fluticasone 250 mcg-salmeterol 50 1 ea inhalation BID 04/05/23 03/01/25 mcg/dose blistr powdr for inhalation guaifenesin 600 mg tablet,extended 600 mg PO BID 04/05/23 03/01/25 release haloperidol 0.5 mg tablet 0.5 mg PO Q6H PRN 04/05/23 05/27/24 hydralazine 10 mg tablet 10 mg PO TID 04/05/23 03/01/25 hydroxyzine HCl 50 mg tablet 10 mg PO TID 04/05/23 03/01/25 ipratropium 0.5 mg-albuterol 3 mg 3 ml inhalation Q6H PRN 04/05/23 03/01/25 (2.5 mg base)/3 mL nebulization soln lamotrigine 250 mg tablet,extended 125 mg PO DAILY 04/05/23 03/01/25 release 24 hr levothyroxine 125 mcg tablet 125 mcg PO QAM 04/05/23 03/01/25 (Synthroid) lidocaine 5 % topical patch 1 patch transdermal DAILY 04/05/23 03/01/25 (Lidoderm) lisinopril 5 mg tablet 5 mg PO DAILY 04/05/23 03/01/25 loperamide 2 mg capsule 2 mg PO Q6H PRN 04/05/23 03/01/25 lorazepam 1 mg tablet 0.5 mg PO .COMPLEX 04/05/23 03/01/25 methyl salicylate 15 %-menthol 10 1 applic topical TID PRN 04/05/23 03/01/25 % topical cream (Muscle Rub) metoprolol tartrate 50 mg tablet 50 mg PO BID 04/05/23 03/01/25 nystatin 100,000 unit/gram topical 1 applic topical BID 04/05/23 03/01/25 cream olanzapine 5 mg tablet 10 mg PO BID 04/05/23 03/01/25 ondansetron 4 mg disintegrating 4 mg PO Q6H PRN 04/05/23 03/01/25 tablet pantoprazole 20 mg tablet,delayed 20 mg PO BID 04/05/23 03/01/25 release polyethylene glycol 3350 17 17 g PO DAILY 04/05/23 03/01/25 gram/dose oral powder prazosin 2 mg capsule 4 mg PO HS 04/05/23 03/01/25 quetiapine 200 mg tablet 200 mg PO BID 04/05/23 03/01/25 sennosides 8.6 mg-docusate sodium 1 tab PO BID 04/05/23 03/01/25 50 mg tablet (Senokot-S) cholecalciferol (vitamin D3) 50 50 mcg PO DAILY 03/01/25 03/01/25 mcg (2,000 unit) tablet (Thera-D) guaifenesin 600 mg tablet, 600 mg PO BID PRN 03/01/25 03/01/25 extended release 12 hr (Mucinex) hydrocodone 5 mg-acetaminophen 325 1 tab PO BID 03/01/25 03/01/25 mg tablet lactulose 10 gram/15 mL oral 20 g PO BID 03/01/25 03/01/25 solution metoprolol tartrate 25 mg tablet 25 mg PO BID 03/01/25 03/01/25 Allergies Allergy/AdvReac Type Severity Reaction Status Date / Time amoxicillin AdvReac Unknown Unverified 12/11/23 13:18 aspirin AdvReac Unknown Unverified 12/11/23 13:18 butalbital AdvReac Unknown Unverified 12/11/23 13:18 codeine AdvReac Unknown Unverified 12/11/23 13:18 erythromycin base AdvReac Unknown Unverified 12/11/23 13:18 mirtazapine AdvReac Unknown Unverified 12/11/23 13:18 NSAIDS (Non-Steroidal AdvReac Unknown Unverified 12/11/23 13:18 Anti-Inflamma Sulfa (Sulfonamide AdvReac Unknown Unverified 12/11/23 13:18 Antibiotics) General Stated Complaint: AMS/LOC FANTASMA: 3 Review of Systems Constitutional Constitutional: Denies chills, Denies fever(s), Denies headache(s) and Reports weakness Eyes Eyes: Denies change in vision ENT Ears, Nose, Mouth, and Throat: Denies headache(s) and Denies odynophagia Cardiovascular Cardiovascular: Denies chest pain and Denies dyspnea Respiratory Respiratory: Denies dyspnea Gastrointestinal Gastrointestinal: Reports abdominal pain, Denies diarrhea, Reports nausea, Denies odynophagia and Reports vomiting Genitourinary Genitourinary: Denies dysuria Musculoskeletal Musculoskeletal: Denies myalgias Integumentary/Breasts Skin/Breast: Denies changing lesions Neurologic Neurologic: Denies behavioral changes, Denies headache(s) and Reports weakness Psychiatric Psychiatric: Denies behavioral changes Endocrine Endocrine: Denies heat intolerance Hematologic/Lymphatic Hematologic/Lymphatic: Denies lymphadenopathy Exam Const General: cooperative Nutritional Appearance: average body habitus Orientation: alert, awake and oriented x3 HENMT Head: normal to inspection Ears: external ears normal Mouth: moist mucous membranes Eyes Pupils: PERRL EOM: EOM intact bilaterally and No nystagmus Neck Neck: full ROM and no tracheal deviation Chest Chest: normal inspection of the chest Resp Auscultation: clear to auscultation bilaterally Cardio Rate: regular rate Rhythm: regular rhythm GI Inspection: normal to inspection Palpation: soft, no guarding and not rigid Other: Tender throughout the abdomen with no guarding, rigidity, or rebound. Back/Spine/Pelvis Back: No no CVA tenderness Thoracic/Lumbar Spine: thoracic and lumbar spine normal to inspection Skin General skin exam: no rashes or lesions noted Neuro General: patient alert, patient awake and patient oriented x3 Cranial Nerves: CN's II-XI intact bilaterally, PERRL and no nystagmus Cognition: normal cognition Motor: muscle tone normal throughout and strength 5/5 throughout Sensory Exam: no sensory deficits noted Extrem General: normal to inspection Course Vital Signs Vital signs: Vital Signs Temperature 37.1 C 03/01/25 17:34 Pulse 85 03/01/25 17:34 Respiratory Rate 20 03/01/25 17:34 Blood Pressure 110/48 L 03/01/25 17:34 Pulse Oximetry 98 03/01/25 17:34 Temperature 37.1 C 03/01/25 17:45 Temperature Source Oral 03/01/25 17:34 Pulse 85 03/01/25 17:45 Respiratory Rate 20 03/01/25 17:45 Respiratory Effort Normal 03/01/25 17:45 Respiratory Depth Normal 03/01/25 17:45 Respiratory Pattern Normal 03/01/25 17:45 Blood Pressure 110/48 L 03/01/25 17:45 Blood Pressure Position Sitting 03/01/25 17:34 Pulse Oximetry 98 03/01/25 17:45 Oxygen Delivery Method Room Air 03/01/25 17:45 Oxygen Flow Rate 0 03/01/25 17:34 Pain Level 0 03/01/25 17:34 Medical Decision Making This is a 74-year-old female who presents with nausea abdominal pain and weakness with poor p.o. intake. Differential is broad. Will get CT abdomen pelvis to evaluate for intra-abdominal abscess or bowel obstruction. This will also evaluate for kidney stones. Will get broad labs to look for electrolyte or metabolic cause of the patient's symptoms. Will get CT head to rule out intracranial hemorrhage or mass occupying lesion. Will give some IV fluids and await initial testing and reevaluate. 918pm Labs and CT head unremarkable. CT abdomen pelvis shows significant constipation. Now eating and drinking without difficulty.. This seems reasonable. Will discharge with return precautions. Medical Records Medical records reviewed: Yes I reviewed the patient's medical records. Imaging Data Radiologic Study: Attestation: I personally reviewed and interpreted this imaging study as follows: Imaging: CT Scan (head) Radiologist's impression: Exam: CT Head Without Contrast Exam date and time: 03/01/2025 7:33 PM FINDINGS: Brain: Cerebral volume loss noted. Scattered areas of decreased attenuation in the deep periventricular white matter consistent with small vessel ischemic change. No evidence for acute intracranial hemorrhage. Cerebral ventricles: No ventriculomegaly. Paranasal sinuses: Left sphenoid sinus opacified. Mastoid air cells: Visualized mastoid air cells are well aerated. Bones: Unremarkable. No acute fracture. Soft tissues: Unremarkable. IMPRESSION: Senescent changes noted. No acute intracranial abnormality. Radiologic Study #2: Imaging: CT Scan (abd and pelvis) My impression: constipation Radiologist's impression: Exam: CT Abdomen And Pelvis With Contrast Exam date and time: 03/01/2025 7:36 PM Age: 74 years old Clinical indication: Other: Abdominal pain, acute, nonlocalized TECHNIQUE: Imaging protocol: Computed tomography of the abdomen and pelvis with contrast. Contrast material: 350; Contrast volume: 75 ml; Contrast route: INTRAVENOUS (IV); COMPARISON: CR XR CHEST 2V PA LATERAL 04/05/2023 11:12 AM FINDINGS: Diaphragm: Small sliding-type hiatal hernia. Liver: Normal. No mass. Gallbladder and biliary ducts: Gallbladder is surgically absent. Mild biliary ductal dilation. Pancreas: Normal. No ductal dilation. Spleen: Normal. No splenomegaly. Adrenal glands: Normal. No mass. Kidneys and ureters: Normal. No hydronephrosis. Stomach and bowel: Large volume stool in the distal rectosigmoid colon suggesting fecal impaction. No evidence of bowel obstruction. No significant bowel wall thickening. Appendix: No evidence of appendicitis. Intraperitoneal space: Unremarkable. No free air. No significant fluid collection. Vasculature: Moderate atherosclerotic calcification in the distal aorta. No evidence of aneurysm or dissection. Lymph nodes: Unremarkable. No enlarged lymph nodes. Urinary bladder: Unremarkable as visualized. Reproductive: Uterus is absent. No adnexal abnormality. Bones/joints: Right hip prosthesis in place. Mild levoscoliosis of the thoracolumbar spine. There is significant compression of the L1 vertebra with bony retropulsion producing moderate central canal stenosis. No well-defined fracture lines. Soft tissues: Unremarkable. IMPRESSION: 1. Distal rectosigmoid fecal impaction 2. Age-indeterminate L1 compression fracture. If there is a history of recent trauma, consider further evaluation with MRI. Lab Data Lab results reviewed: Yes I reviewed the patient's lab results. Labs: Labs grossly unremarkable ECG Data Attestation: I personally reviewed and interpreted this ECG (s) as follows: Prior ECG tracings: available for review Interpretation: Normal sinus rhythm with normal axis. Normal FL intervals with no ST or T wave changes. Similar to prior EKGs. Otherwise unremarkable. Quality:SDOH Health Related Social Needs: No Data to Display [facility] All Active Problems (Updated 03/01/25 @ 21:23 by Omkar Manuel MD) Abdominal pain (Acute) Constipation (Acute) Social History Smoking/Tobacco Use Status: Never Smoking risk assessment performed?: Yes Alcohol Intake: never Substance use type: does not use
[2025-03-01] MEDS: Normal Saline 1,000 ML 1000 ML IV (19:14)
[2025-03-01 19:27] LABS: Abs Immature Grans 0.09 10^3/uL (0.0-0.06); Absolute Basophil Count 0.03 10^3/uL (0.0-0.2); Absolute Eosinophil Count 0.13 10^3/uL (0.0-0.7); Absolute Lymphocyte Count 1.77 10^3/uL (1.2-3.4); Absolute Monocyte Count 0.63 10^3/uL (0.1-0.8); Absolute Neutrophil Count 5.24 10^3/uL (1.2-6.7); Basophils % 0.4 %; Eosinophils % 1.6 %; HCT 29.1 % (36.0-46.0); HGB 9.1 g/dL (11.2-15.7); Immature Grans % 1.1 %; Lymphocytes % 22.4 %; MCH 30.7 pg (27.0-33.0); MCHC 31.3 % (32.0-36.0); MCV 98 fL (80-95); MPV 8.7 fL (8.0-11.0); Neutrophils % 66.5 %; Platelet Count 387 10^3/uL (130-400); RBC 2.96 10^6/uL (3.93-5.22); RDW 15.7 % (11.7-14.6); RDW-SD 55.8 fL; WBC 7.89 10^3/uL (4.4-10.8)
[2025-03-01] MEDS: Normal Saline - Diluent 50 ML VIAL IJ (19:46)
[2025-03-01] MEDS: Omnipaque 350 MG/ML 100 ML BTL IJ (19:47)
[2025-03-01 19:50] LABS: INR 1.2 (0.9-1.1)
[2025-03-01 19:51] LABS: ALT 17 U/L (14-59); AST 22 U/L (15-37); Albumin 2.3 g/dL (3.4-5.0); Alkaline Phosphatase 130 U/L (46-116); Anion Gap 7.6 mmol/L (3-11); BUN 40 mg/dL (7-18); Bilirubin, Total 0.4 mg/dL (0.2-1.0); CO2 26.4 mmol/L (21.0-32.0); CREATININE 1.3 mg/dL (0.55-1.02); Calcium 9.4 mg/dL (8.5-10.1); Chloride 108 mmol/L (98-107); Estimated GFR 43.42 (mL/min/1.73m2); Glucose 96 mg/dL (74-106); Magnesium 2.1 mg/dL (1.8-2.4); Potassium 4.7 mmol/L (3.5-5.1); Sodium 142 mmol/L (136-145); Total Protein 5.9 g/dL (6.4-8.2)
[2025-03-01 19:56] LABS: Lipase 29 U/L (<78); Troponin I 14 ng/L (<or=51)
[2025-03-01 20:10] LABS: COVID-19 PCR Negative (Negative); Influenza A PCR Negative (Negative); Influenza B PCR Negative (Negative); RSV PCR Negative (Negative)
[2025-03-01 20:40] LABS: Source Nasopharynx
--- NOTE | 2025-03-01 20:41 | DI.VRAD_ITS ---
PROCEDURE INFORMATION: Exam: CT Head Without Contrast Exam date and time: 03/01/2025 7:33 PM Age: 74 years old Clinical indication: Other: Mental status change, unknown cause TECHNIQUE: Imaging protocol: Computed tomography of the head without contrast. COMPARISON: No relevant prior studies available. FINDINGS: Brain: Cerebral volume loss noted. Scattered areas of decreased attenuation in the deep periventricular white matter consistent with small vessel ischemic change. No evidence for acute intracranial hemorrhage. Cerebral ventricles: No ventriculomegaly. Paranasal sinuses: Left sphenoid sinus opacified. Mastoid air cells: Visualized mastoid air cells are well aerated. Bones: Unremarkable. No acute fracture. Soft tissues: Unremarkable. IMPRESSION: Senescent changes noted. No acute intracranial abnormality. Dictated and Authenticated by: Kiersten Murdock MD. Orderin Mar Espitia MD
--- NOTE | 2025-03-01 20:51 | DI.VRAD_ITS ---
PROCEDURE INFORMATION: Exam: CT Abdomen And Pelvis With Contrast Exam date and time: 03/01/2025 7:36 PM Age: 74 years old Clinical indication: Other: Abdominal pain, acute, nonlocalized TECHNIQUE: Imaging protocol: Computed tomography of the abdomen and pelvis with contrast. Contrast material: 350; Contrast volume: 75 ml; Contrast route: INTRAVENOUS (IV); COMPARISON: CR XR CHEST 2V PA LATERAL 04/05/2023 11:12 AM FINDINGS: Diaphragm: Small sliding-type hiatal hernia. Liver: Normal. No mass. Gallbladder and biliary ducts: Gallbladder is surgically absent. Mild biliary ductal dilation. Pancreas: Normal. No ductal dilation. Spleen: Normal. No splenomegaly. Adrenal glands: Normal. No mass. Kidneys and ureters: Normal. No hydronephrosis. Stomach and bowel: Large volume stool in the distal rectosigmoid colon suggesting fecal impaction. No evidence of bowel obstruction. No significant bowel wall thickening. Appendix: No evidence of appendicitis. Intraperitoneal space: Unremarkable. No free air. No significant fluid collection. Vasculature: Moderate atherosclerotic calcification in the distal aorta. No evidence of aneurysm or dissection. Lymph nodes: Unremarkable. No enlarged lymph nodes. Urinary bladder: Unremarkable as visualized. Reproductive: Uterus is absent. No adnexal abnormality. Bones/joints: Right hip prosthesis in place. Mild levoscoliosis of the thoracolumbar spine. There is significant compression of the L1 vertebra with bony retropulsion producing moderate central canal stenosis. No well-defined fracture lines. Soft tissues: Unremarkable. IMPRESSION: 1. Distal rectosigmoid fecal impaction 2. Age-indeterminate L1 compression fracture. If there is a history of recent trauma, consider further evaluation with MRI. Dictated and Authenticated by: Presley Martino MD. Orderin Mar Espitia MD
[2025-03-01] MEDS: Acetaminophen 325 MG TAB 650 MG PO (21:26)
[2025-03-01 21:36] VITALS: BP 124/74; PULSE 84; RESP 15; TEMP 37.4; O2SAT 95
== END 2025-03-01 22:05 | disposition skilled nursing facility (03) ==
PROVIDERS: Emergency Provider Student in an Organized Health Care Education/Training Program; PCP Legal Medicine
DX: R10.30 Lower abdominal pain, unspecified (principal); K59.00 Constipation, unspecified; R11.0 Nausea; Z86.73 Personal history of transient ischemic attack (TIA), and cerebral infarction without residual deficits
CPT/HCPCS: 80053; 83690; 87637; 93005; 96360; 96361; 99285; 70450; 74177; 81003; 83735; 84484; 85025; 85610; 93010; 99283; J3490

== ENCOUNTER 2025-03-16 13:54 | Emergency (ER) | payer MEDICARE, MEDICAID, SELFPAY ==
[2025-03-16] VITALS (57 sets, daily range): BP systolic 87–131; BP diastolic 31–64; PULSE 78–96; RESP 10–16; TEMP 36.6–37.1; O2SAT 94–99
--- NOTE | 2025-03-16 13:45 | RT.EKG_ITS ---
APPROVED REPORT Exam: Resting ECG Reason for Exam: low bp Patient Location: E HR:86 bpm ECG Measurements Heart Rate 86 AXIS NV 167 P 28 QRSd 88 QRS -13 QT [id number] T 1 QTc 0 Conclusion Sinus rhythm...normal P axis, V-rate 60- 99 Borderline T abnormalities, diffuse leads...T flat/neg No Occlusion NC
--- NOTE | 2025-03-16 14:07 | ED.GENADUL_ITS ---
Discharge Plan Discharge Details Chief Complaint: AMS/LOC Primary Care Provider: Yohana Ferrari ED Provider: Varsha Gutierrez Home Meds and New Rx's Prescriptions: No Action cholecalciferol (vitamin D3) [Thera-D] 50 mcg (2,000 unit) tablet 50 mcg PO DAILY metoprolol tartrate 25 mg tablet 25 mg PO BID lactulose 10 gram/15 mL solution 30 ml PO BID aspirin 81 mg Tablet,Delayed Release (Dr/Ec) 81 mg PO DAILY calcium carbonate [Antacid (calcium carbonate)] 200 mg calcium (500 mg) Tablet,Chewable 500 mg PO TID Rx Instructions: with meals ipratropium-albuterol 0.5 mg-3 mg(2.5 mg base)/3 mL Solution For Nebulization 3 ml INHALATION BID lisinopril 5 mg tablet 5 mg PO DAILY atorvastatin 20 mg tablet 20 mg PO QPM citalopram 20 mg Tablet 20 mg PO DAILY hydralazine 10 mg tablet 10 mg PO TID Muscle Rub 15-10 % Cream 1 applic TOPICAL TID PRN nystatin 100,000 unit/gram Cream 1 applic TOPICAL BID olanzapine 5 mg Tablet 10 mg PO BID pantoprazole 20 mg tablet,delayed release (DR/EC) 20 mg PO BID Patient Comments: take 1 tablet by mouth twice a day polyethylene glycol 3350 17 gram/dose Powder 17 g PO DAILY prazosin 2 mg Capsule 2 mg PO HS quetiapine 200 mg tablet 200 mg PO BID levothyroxine [Synthroid] 125 mcg Tablet 125 mcg PO QHS lamotrigine 100 mg tablet 100 mg PO BID lamotrigine 25 mg tablet 25 mg PO BID sennosides-docusate sodium [Stool Softener-Laxative] 8.6-50 mg tablet 1 tab-cap PO DAILY guaifenesin [Mucus Relief] 400 mg tablet 400 mg PO BID HPI General Mode of arrival: EMS . Date/Time Provider Initiated Documentation: 03/16/25 14:04 . Limitations to Documentation: altered mental status and physical limitation . Information obtained by: patient, EMS, RN notes reviewed and old records reviewed . HPI Narrative: 74-year-old female presents to the ER via EMS with a chief complaint of altered mental status and constipation. Per EMS vital signs are stable including capnography and blood sugar. Patient does respond with one-word responses with her eyes closed. No eye-opening. She is a DNR/DNI. She was seen here couple weeks ago for similar and was found to have constipation. She does have a past medical history of hypertension, multiple CVAs hypertension, high cholesterol GERD. Related Data Home Medications ?Medication ?Instructions ?Recorded ?Confirmed aspirin 81 mg tablet,delayed 81 mg PO DAILY 04/05/23 03/16/25 release atorvastatin 20 mg tablet 20 mg PO QPM 04/05/23 03/16/25 calcium carbonate (Antacid 500 mg PO TID 04/05/23 03/16/25 (calcium carbonate)) citalopram 20 mg tablet 20 mg PO DAILY 04/05/23 03/16/25 hydralazine 10 mg tablet 10 mg PO TID 04/05/23 03/16/25 ipratropium 0.5 mg-albuterol 3 mg 3 ml inhalation BID 04/05/23 03/16/25 (2.5 mg base)/3 mL nebulization soln levothyroxine 125 mcg tablet 125 mcg PO QHS 04/05/23 03/16/25 (Synthroid) lisinopril 5 mg tablet 5 mg PO DAILY 04/05/23 03/16/25 methyl salicylate 15 %-menthol 10 1 applic topical TID PRN 04/05/23 03/16/25 % topical cream (Muscle Rub) nystatin 100,000 unit/gram topical 1 applic topical BID 04/05/23 03/16/25 cream olanzapine 5 mg tablet 10 mg PO BID 04/05/23 03/16/25 pantoprazole 20 mg tablet,delayed 20 mg PO BID 04/05/23 03/16/25 release polyethylene glycol 3350 17 17 g PO DAILY 04/05/23 03/16/25 gram/dose oral powder prazosin 2 mg capsule 2 mg PO HS 04/05/23 03/16/25 quetiapine 200 mg tablet 200 mg PO BID 04/05/23 03/16/25 cholecalciferol (vitamin D3) 50 50 mcg PO DAILY 03/01/25 03/16/25 mcg (2,000 unit) tablet (Thera-D) lactulose 10 gram/15 mL oral 30 ml PO BID 03/01/25 03/16/25 solution metoprolol tartrate 25 mg tablet 25 mg PO BID 03/01/25 03/16/25 guaifenesin 400 mg tablet (Mucus 400 mg PO BID 03/16/25 03/16/25 Relief) lamotrigine 100 mg tablet 100 mg PO BID 03/16/25 03/16/25 lamotrigine 25 mg tablet 25 mg PO BID 03/16/25 03/16/25 sennosides 8.6 mg-docusate sodium 1 tab-cap PO DAILY 03/16/25 03/16/25 50 mg tablet (Stool Softener-Laxative) Allergies Allergy/AdvReac Type Severity Reaction Status Date / Time amoxicillin AdvReac Unknown Unknown Unverified 03/16/25 13:59 aspirin AdvReac Unknown Unknown Unverified 03/16/25 13:59 butalbital AdvReac Unknown Unknown Unverified 03/16/25 13:59 codeine AdvReac Unknown Unknown Unverified 03/16/25 13:59 erythromycin base AdvReac Unknown Unknown Unverified 03/16/25 13:59 mirtazapine AdvReac Unknown Unknown Unverified 03/16/25 13:59 NSAIDS (Non-Steroidal AdvReac Unknown Unknown Unverified 03/16/25 13:59 Anti-Inflamma Sulfa (Sulfonamide AdvReac Unknown Unknown Unverified 03/16/25 13:59 Antibiotics) General Stated Complaint: AMS/LOC FANTASMA: 3 Review of Systems All systems reviewed & are unremarkable except as noted in HPI and below Gastrointestinal Gastrointestinal: Reports constipation Neurologic Neurologic: Reports as per HPI Exam Narrative Exam Narrative: Constitutional: At baseline mentation, does open her eyes to verbal stimuli, groans and makes 1 word responses,. Appears stated age. Normal body habitus. Head: Normocephalic, no trauma. Eyes: Pupils PERRL, Red reflex noted, EOM's intact. Eyelids symmetrical without lesions, discharge, or swelling. ENT: Bilateral TM's WNL, External ear normal to inspection, no mastoid TTP, swelling, or erythema, Nasal turbinates WNL, no nasal discharge. Normal dentition, Posterior pharynx WNL, no exudate. Chest: RRR, Normal S1, S2, distal pulses intact. Resp: Lungs clear to auscultation bilaterally, no wheezes, rales, or rhonchi. Abdomen: Soft, does appear distended, normoactive bowel sounds all 4 quads. Musculoskeletal: Unable to assess gait, is mildly contractured. Skin: No suspicious rashes or lesions. Capillary refill less than 2 sec. Neurologic: At baseline mentation, history of multiple CVAs, does have some residual. Response is one-word verbal responses and flutters her eyes open. Hematologic/Lymphatic: No ecchymosis, no lymphadenopathy. Course Vital Signs Vital signs: Vital Signs Pulse 96 H 03/16/25 13:57 Respiratory Rate 14 03/16/25 13:57 Blood Pressure 109/50 L 03/16/25 13:57 Pulse Oximetry 97 03/16/25 13:57 Pulse 96 H 03/16/25 13:57 Respiratory Rate 14 03/16/25 13:57 Blood Pressure 109/50 L 03/16/25 13:57 Pulse Oximetry 97 03/16/25 13:57 Oxygen Delivery Method Room Air 03/16/25 13:57 Oxygen Flow Rate 0 03/16/25 13:57 Medical Decision Making 74-year-old female presents to the ER via EMS with a chief complaint of altered mental status and constipation. Per EMS vital signs are stable including capnography and blood sugar. Patient does respond with one-word responses with her eyes closed. No eye-opening. She is a DNR/DNI. She was seen here couple weeks ago for similar and was found to have constipation. She does have a past medical history of hypertension, multiple CVAs hypertension, high cholesterol GERD. Patient had an episode of hypotension with a systolic in the 80s and was given 500 cc normal saline bolus, blood pressure improved to 115 systolic. Workup ordered including CBC CMP troponin, EKG CT abdomen pelvis and head CT. No stool noted in the rectal vault, does not need disimpaction at this time. Care is to be handed off to oncoming provider IRAIDA Dominguez pending CT abdomen results, urinalysis results and disposition. Medical Records Medical records reviewed: Yes I reviewed the patient's medical records. Lab Data Lab results reviewed: Yes I reviewed the patient's lab results. Labs: Laboratory Tests Range/Units 03/16/25 14:02 WBC (4.4-10.8) 10^3/uL 5.24 RBC (3.93-5.22) 10^6/uL 2.89 L Hgb (11.2-15.7) g/dL 8.9 L Hct (36.0-46.0) % 28.5 L MCV (80-95) fL 99 H MCH (27.0-33.0) pg 30.8 MCHC (32.0-36.0) % 31.2 L RDW (11.7-14.6) % 16.4 H Plt Count (130-400) 10^3/uL 314 MPV (8.0-11.0) fL 8.9 Immature Gran % % 0.4 Neutrophils % % 57.2 Lymphocytes % % 30.3 Monocytes % % 8.6 Eosinophils % % 2.7 Basophils % % 0.8 Nucleated RBC % (0.0-0.3) % 0.0 Absolute Neutrophils (1.2-6.7) 10^3/uL 3.00 Absolute Lymphocytes (1.2-3.4) 10^3/uL 1.59 Absolute Monocytes (0.1-0.8) 10^3/uL 0.45 Absolute Eosinophils (0.0-0.7) 10^3/uL 0.14 Absolute Basophils (0.0-0.2) 10^3/uL 0.04 Sodium (136-145) mmol/L 140 Potassium (3.5-5.1) mmol/L 4.8 Chloride (98-107) mmol/L 106 Carbon Dioxide (21.0-32.0) mmol/L 28.1 Anion Gap (3-11) mmol/L 5.9 BUN (7-18) mg/dL 31 H Creatinine (0.55-1.02) mg/dL 1.4 H Est GFR (CKD-EPI 2020) (mL/min/1.73m2) 39.73 Glucose (74-106) mg/dL 112 H Calcium (8.5-10.1) mg/dL 9.0 Magnesium (1.8-2.4) mg/dL 2.5 H Total Bilirubin (0.2-1.0) mg/dL 0.3 AST (15-37) U/L 21 ALT (14-59) U/L 22 Alkaline Phosphatase (46-116) U/L 117 H Troponin I (<or=51) ng/L 10 Total Protein (6.4-8.2) g/dL 5.5 L Albumin (3.4-5.0) g/dL 2.2 L Quality:[facility] Health Related Social Needs: No Data to Display PFSH All Active Problems Abdominal pain (Acute) Constipation (Acute) Social History Smoking/Tobacco Use Status: Never Smoking risk assessment performed?: Yes Alcohol Intake: never Drug use: Never Substance use type: does not use Housing: assisted living facility
[2025-03-16 14:11] LABS: Abs Immature Grans 0.02 10^3/uL (0.0-0.06); Absolute Basophil Count 0.04 10^3/uL (0.0-0.2); Absolute Eosinophil Count 0.14 10^3/uL (0.0-0.7); Absolute Lymphocyte Count 1.59 10^3/uL (1.2-3.4); Absolute Monocyte Count 0.45 10^3/uL (0.1-0.8); Basophils % 0.8 %; Eosinophils % 2.7 %; HCT 28.5 % (36.0-46.0); HGB 8.9 g/dL (11.2-15.7); Immature Grans % 0.4 %; Lymphocytes % 30.3 %; MCH 30.8 pg (27.0-33.0); MCHC 31.2 % (32.0-36.0); MCV 99 fL (80-95); MPV 8.9 fL (8.0-11.0); Monocytes % 8.6 %; Neutrophils % 57.2 %; Platelet Count 314 10^3/uL (130-400); RBC 2.89 10^6/uL (3.93-5.22); RDW 16.4 % (11.7-14.6); RDW-SD 59.1 fL; WBC 5.24 10^3/uL (4.4-10.8)
--- NOTE | 2025-03-16 14:15 | DI.CT_ITS ---
Exam(s) CT ABDOMEN PELVIS W EXAM: CT ABDOMEN PELVIS W CLINICAL HISTORY: Constipation, Abd distention TECHNIQUE: Imaging Protocol: Axial computed tomography images with coronal and sagittal reformatted images were created and reviewed. CONTRAST MATERIAL: Intravenous: Omnipaque 350 Contrast volume:75 mL Oral: No COMPARISON: CR XR CHEST 2V PA LATERAL from 04/05/[address] ABDOMEN PELVIS W from 03/01/2025 FINDINGS: ABDOMEN: Lung Bases: There is again seen a hiatal hernia. Liver: Normal density. There is decreased attenuation seen around the ligamentum teres most consisten t with fatty infiltration. No suspicious hepatic mass is seen. Portal, Superior Mesenteric, and Splenic Veins: Unremarkable. Gallbladder and Biliary Tract: Status post cholecystectomy. The common duct measures 8 mm. This is unchanged and likely reflects post cholecystectomy state. Pancreas: Normal density, no abnormal calcifications or inflammatory process. Spleen: Normal. Adrenals: No masses seen. Kidneys: Normal size, contour and axis. There is a nonobstructing stone in the lower pole of the left kidney. No masses seen. Abdominal Aorta: Abdominal portion non-dilated. Atherosclerotic calcification is present. Bowel: There is a large amount of stool seen in the rectosigmoid colon. No bowel wall thickening is seen. Fecal impaction should be considered. There is stool throughout the colon consistent with con stipation. There is diverticulosis seen in the colon without evidence of acute diverticulitis. Ther e is no evidence of bowel obstruction. There is no evidence of appendicitis. Peritoneal Cavity: No ascites, collection or mesenteric inflammatory response. No free air. Lymph Nodes: Within normal limits. Bones: Within normal limits for the patient's age. The patient has a right total hip arthroplasty. There is again seen an L1 compression fracture deformity. This was present on the examination from . This is of indeterminate age. There is retropulsion into the spinal canal causing mild-to -moderate central canal stenosis which appears stable. Soft Tissues: Unremarkable. PELVIS: Bladder: Symmetric distention, no gross wall thickening. Reproductive Organs: Status post hysterectomy. Lymph Nodes: Within normal limits. Bones: Within normal limits for the patient's age. IMPRESSION: 1. Large amount of stool in the rectum suggesting fecal impaction. 2. Large amount of stool throughout the colon consistent with constipation. 3. Colonic diverticulosis without evidence of acute diverticulitis. 4. Stable L1 compression fracture deformity. This is of indeterminate age. If there is continued cl inical concern, an MRI may be considered for further characterization. RADIATION DOSE DELIVERED: 1,386.64mGy.cm Total DLP DATA REPOSITORY: All CT scans at this facility are submitted to the National Radiology Data Registry (NRDR) Dose Index Registry (DIR) with the [employer] (ACR). RADIATION OPTIMIZATION: All CT scans at this facility use at least one of these dose optimization te chniques: automated exposure control; mA and/or kV adjustment per patient size (includes targeted exa ms where dose is matched to clinical indication); or iterative reconstruction.
--- NOTE | 2025-03-16 14:15 | DI.CT_ITS ---
Exam(s) CT HEAD WO EXAM: CT HEAD WO CLINICAL HISTORY: AMS, hx CVA. TECHNIQUE: Imaging Protocol: Axial computed tomography images with coronal and sagittal reformatted images were created and reviewed COMPARISON: CT CT HEAD WO from 03/01/2025 FINDINGS: Ventricles and Extra axial spaces: Normal in size and morphology for the patient's age. Hemorrhage: None. Cerebral parenchyma: There are areas of decreased attenuation in the white matter consistent with chr onic microvascular ischemic disease. No acute mass effect or evidence to suggest an acute territoria l infarct are seen. Midline shift: None. Brainstem/Cerebellum: Normal. Calvarium: Normal. No change in appearance of the calvarium. No acute abnormality. Visualized Paranasal sinuses/Mastoids: There is mucosal thickening in the left sphenoid sinus. The m astoid air cells are clear. The remaining visualized paranasal sinuses are clear. Soft Tissues: Unremarkable. IMPRESSION: No acute intracranial process. RADIATION DOSE DELIVERED: 1,009.53mGy.cm Total DLP DATA REPOSITORY: All CT scans at this facility are submitted to the National Radiology Data Registry (NRDR) Dose Index Registry (DIR) with the [employer] (ACR). RADIATION OPTIMIZATION: All CT scans at this facility use at least one of these dose optimization te chniques: automated exposure control; mA and/or kV adjustment per patient size (includes targeted exa ms where dose is matched to clinical indication); or iterative reconstruction.
[2025-03-16 14:34] LABS: ALT 22 U/L (14-59); AST 21 U/L (15-37); Albumin 2.2 g/dL (3.4-5.0); Alkaline Phosphatase 117 U/L (46-116); Anion Gap 5.9 mmol/L (3-11); BUN 31 mg/dL (7-18); Bilirubin, Total 0.3 mg/dL (0.2-1.0); CO2 28.1 mmol/L (21.0-32.0); CREATININE 1.4 mg/dL (0.55-1.02); Chloride 106 mmol/L (98-107); Estimated GFR 39.73 (mL/min/1.73m2); Glucose 112 mg/dL (74-106); Magnesium 2.5 mg/dL (1.8-2.4); Potassium 4.8 mmol/L (3.5-5.1); Sodium 140 mmol/L (136-145); Total Protein 5.5 g/dL (6.4-8.2); Troponin I 10 ng/L (<or=51)
[2025-03-16] MEDS: Normal Saline 500 ML IV (14:42)
[2025-03-16] MEDS: Normal Saline - Diluent 50 ML VIAL IJ (15:19)
[2025-03-16] MEDS: Omnipaque 350 MG/ML 100 ML BTL 75 ML IJ (15:20)
[2025-03-16 15:47] LABS: Troponin I 10 ng/L (<or=51)
[2025-03-16 16:07] LABS: Bilirubin Negative (Negative); Blood Negative (Negative); Clarity Clear (Clear); Glucose Negative (Negative); Ketones Negative (Negative); Leukocyte Esterase Negative (Negative); Nitrite Negative (Negative); Specific Gravity 1.025 (1.005-1.025); Urobilinogen 0.2 mg/dL (Up to 0.2); pH 5.5 (5-8)
[2025-03-16 18:01] LABS: Troponin I 12 ng/L (<or=51)
[2025-03-16] MEDS: Mineral Oil-Enema 133 ML BTL PR (18:04)
--- NOTE | 2025-03-16 20:51 | NUR.NOTE ---
Attempted to call the [facility] to give report at 2037. A nursing staff responded but then transferred the call to another unit but no one picked up the phone
== END 2025-03-16 20:10 | disposition home or self-care (01) ==
PROVIDERS: Registered Nurse Emergency; Emergency Provider Physician Assistant; PCP Legal Medicine
DX: R41.82 Altered mental status, unspecified (principal); K59.00 Constipation, unspecified; I10 Essential (primary) hypertension; E78.5 Hyperlipidemia, unspecified; Z86.73 Personal history of transient ischemic attack (TIA), and cerebral infarction without residual deficits; Z79.82 Long term (current) use of aspirin
CPT/HCPCS: 36415; 80053; 93005; 96360; 99285; 70450; 74177; 81003; 83735; 84484; 85025; 93010; J3490

== ENCOUNTER 2025-04-07 18:17 | Outpatient (REF) | payer MEDICARE, MEDICAID, SELFPAY | END 2025-04-07 18:18 | disposition home or self-care (01) | LOC: LBN 18:17 | PROVIDERS: PCP Legal Medicine; Visit Provider Nurse Practitioner Gerontology | DX: N39.0 Urinary tract infection, site not specified (principal); R82.89 Other abnormal findings on cytological and histological examination of urine | CPT/HCPCS: 87086 ==

== ENCOUNTER 2025-04-08 15:59 | Emergency (ER) | payer MEDICARE, MEDICAID, SELFPAY ==
[2025-04-08] VITALS (21 sets, daily range): BP systolic 96–105; BP diastolic 30–49; PULSE 74–108; RESP 12–20; TEMP 36.6; O2SAT 94–97
[2025-04-08] MEDS: Normal Saline 1,000 ML 1000 ML IV (16:52)
[2025-04-08 17:43] LABS: BUN 44 mg/dL (7-18); CREATININE 1.4 mg/dL (0.55-1.02); Calcium 8.4 mg/dL (8.5-10.1); Chloride 107 mmol/L (98-107); Estimated GFR 39.73 (mL/min/1.73m2); Glucose 102 mg/dL (74-106); Potassium 5.1 mmol/L (3.5-5.1); Sodium 141 mmol/L (136-145)
--- NOTE | 2025-04-08 19:20 | W.ED.GENAD ---
Discharge Plan Disposition Patient Disposition: Home Condition: Stable Discharge Details Clinical Impression: Low blood pressure reading, Decreased oral intake Primary Care Provider: Yohana Ferrari ED Provider: Shell Rivera Home Meds and New Rx's Prescriptions: No Action cholecalciferol (vitamin D3) [Thera-D] 50 mcg (2,000 unit) tablet 50 mcg PO DAILY metoprolol tartrate 25 mg tablet 25 mg PO BID lactulose 10 gram/15 mL solution 30 ml PO BID lorazepam 0.5 mg tablet 0.5 mg PO BID lisinopril 5 mg tablet 5 mg PO DAILY hydrocodone-acetaminophen 5-325 mg tablet 1 tab PO Q6H PRN nitroglycerin 0.4 mg tablet, sublingual 0.4 mg sublingual Q5M PRN aspirin 81 mg Tablet,Delayed Release (Dr/Ec) 81 mg PO DAILY calcium carbonate [Antacid (calcium carbonate)] 200 mg calcium (500 mg) Tablet,Chewable 500 mg PO TID Rx Instructions: with meals ipratropium-albuterol 0.5 mg-3 mg(2.5 mg base)/3 mL Solution For Nebulization 3 ml INHALATION BID atorvastatin 20 mg tablet 20 mg PO QPM citalopram 20 mg Tablet 20 mg PO DAILY Muscle Rub 15-10 % Cream 1 applic TOPICAL TID PRN nystatin 100,000 unit/gram Cream 1 applic TOPICAL BID olanzapine 5 mg Tablet 10 mg PO BID pantoprazole 20 mg tablet,delayed release (DR/EC) 20 mg PO BID Patient Comments: take 1 tablet by mouth twice a day polyethylene glycol 3350 17 gram/dose Powder 17 g PO DAILY prazosin 2 mg Capsule 2 mg PO HS quetiapine 200 mg tablet 200 mg PO BID levothyroxine [Synthroid] 125 mcg Tablet 125 mcg PO QHS lamotrigine 100 mg tablet 100 mg PO BID lamotrigine 25 mg tablet 25 mg PO BID sennosides-docusate sodium [Stool Softener-Laxative] 8.6-50 mg tablet 1 tab-cap PO DAILY guaifenesin [Mucus Relief] 400 mg tablet 400 mg PO BID Discharge Instructions Additional Instructions: wants to continue comfort measures. patient received iv fluids but blood work was not able to be obtained HPI General Date/Time Provider Initiated Documentation: 04/08/25 16:00. Limitations to Documentation: altered mental status and physical limitation. Information obtained by: family. HPI Narrative: 74-year-old female with past medical history of CVA, currently staying at the [facility] on comfort measure only presents via EMS for evaluation of decreased oral intake. The report from the [facility] was that the patient's has revoked comfort measures and wanted her evaluated with blood work at the hospital. They report that it has been about a week of intermittent changes in her mental status. They have adjusted some medications and feel that the patient's orientation is only to self at this time. I was able to discuss with the who states that he was with his all day. He tried to get her to eat lunch, she would have a little bit of juice, but did not eat any food. He reports this has been ongoing lately. He reports that earlier in the day she was more alert and they were able to share a few words though she does not talk much and is not really able to understand much. But he says after lunch she was not very responsive and seemed to be sleepy. He left the facility and shortly after leaving he reports that he received a phone call from the [facility] stating that they wanted to get blood work on her but they were not able to draw any blood, so they were going to send her to the hospital. He states that he does not want CPR or any invasive procedures. He only wants his to be comfortable. Related Data Home Medications ?Medication ?Instructions ?Recorded ?Confirmed aspirin 81 mg tablet,delayed 81 mg PO DAILY 04/05/23 04/08/25 release atorvastatin 20 mg tablet 20 mg PO QPM 04/05/23 04/08/25 calcium carbonate (Antacid 500 mg PO TID 04/05/23 04/08/25 (calcium carbonate)) citalopram 20 mg tablet 20 mg PO DAILY 04/05/23 04/08/25 ipratropium 0.5 mg-albuterol 3 mg 3 ml inhalation BID 04/05/23 04/08/25 (2.5 mg base)/3 mL nebulization soln levothyroxine 125 mcg tablet 125 mcg PO QHS 04/05/23 04/08/25 (Synthroid) methyl salicylate 15 %-menthol 10 1 applic topical TID PRN 04/05/23 04/08/25 % topical cream (Muscle Rub) nystatin 100,000 unit/gram topical 1 applic topical BID 04/05/23 04/08/25 cream olanzapine 5 mg tablet 10 mg PO BID 04/05/23 04/08/25 pantoprazole 20 mg tablet,delayed 20 mg PO BID 04/05/23 04/08/25 release polyethylene glycol 3350 17 17 g PO DAILY 04/05/23 04/08/25 gram/dose oral powder prazosin 2 mg capsule 2 mg PO HS 04/05/23 04/08/25 quetiapine 200 mg tablet 200 mg PO BID 04/05/23 04/08/25 cholecalciferol (vitamin D3) 50 50 mcg PO DAILY 03/01/25 04/08/25 mcg (2,000 unit) tablet (Thera-D) lactulose 10 gram/15 mL oral 30 ml PO BID 03/01/25 04/08/25 solution metoprolol tartrate 25 mg tablet 25 mg PO BID 03/01/25 04/08/25 guaifenesin 400 mg tablet (Mucus 400 mg PO BID 03/16/25 04/08/25 Relief) lamotrigine 100 mg tablet 100 mg PO BID 03/16/25 04/08/25 lamotrigine 25 mg tablet 25 mg PO BID 03/16/25 04/08/25 sennosides 8.6 mg-docusate sodium 1 tab-cap PO DAILY 03/16/25 04/08/25 50 mg tablet (Stool Softener-Laxative) hydrocodone 5 mg-acetaminophen 325 1 tab PO Q6H PRN 04/08/25 04/08/25 mg tablet lisinopril 5 mg tablet 5 mg PO DAILY 04/08/25 04/08/25 lorazepam 0.5 mg tablet 0.5 mg PO BID 04/08/25 04/08/25 nitroglycerin 0.4 mg sublingual 0.4 mg sublingual Q5M PRN 04/08/25 04/08/25 tablet Allergies Allergy/AdvReac Type Severity Reaction Status Date / Time amoxicillin AdvReac Unknown Unknown Unverified 04/08/25 16:49 aspirin AdvReac Unknown Unknown Unverified 04/08/25 16:49 butalbital AdvReac Unknown Unknown Unverified 04/08/25 16:49 codeine AdvReac Unknown Unknown Unverified 04/08/25 16:49 erythromycin base AdvReac Unknown Unknown Unverified 04/08/25 16:49 mirtazapine AdvReac Unknown Unknown Unverified 04/08/25 16:49 NSAIDS (Non-Steroidal AdvReac Unknown Unknown Unverified 04/08/25 16:49 Anti-Inflamma Sulfa (Sulfonamide AdvReac Unknown Unknown Unverified 04/08/25 16:49 Antibiotics) General Stated Complaint: AMS/LOC FANTASMA: 3 Exam Narrative Exam Narrative: Review of Systems: All systems reviewed & are unremarkable except as noted in HPI and below Ill-appearing Facial asymmetry noted RRR hypotensive, Unlabored respiratory effort, clear bilaterally not hypoxic Contracted extremities without spontaneous movement, eyes are open and she is making some verbalizations I can understand. Course Vital Signs Vital signs: Vital Signs Temperature 36.6 C 04/08/25 16:00 Pulse 82 04/08/25 16:00 Respiratory Rate 12 04/08/25 16:00 Blood Pressure 96/32 L 04/08/25 16:00 Pulse Oximetry 94 04/08/25 16:00 Temperature 36.6 C 04/08/25 16:07 Pulse 93 H 04/08/25 18:31 Pulse 88 04/08/25 17:50 Respiratory Rate 14 04/08/25 18:31 Respiratory Effort Normal 04/08/25 18:16 Respiratory Depth Normal 04/08/25 18:16 Respiratory Pattern Normal 04/08/25 18:16 Blood Pressure 104/49 L 04/08/25 18:31 Blood Pressure Mean 53 04/08/25 18:31 Pulse Oximetry 94 04/08/25 17:10 Oxygen Delivery Method Room Air 04/08/25 16:07 Oxygen Flow Rate 0 04/08/25 16:07 Pain Level 0 04/08/25 16:07 Lab/Test Results Lab/Test Results: Laboratory Tests Range/Units 04/08/25 17:20 Sodium (136-145) mmol/L 141 Potassium (3.5-5.1) mmol/L 5.1 Chloride (98-107) mmol/L 107 Carbon Dioxide (21.0-32.0) mmol/L 24.0 Anion Gap (3-11) mmol/L 10.0 BUN (7-18) mg/dL 44 H Creatinine (0.55-1.02) mg/dL 1.4 H Est GFR (CKD-EPI 2020) (mL/min/1.73m2) 39.73 Glucose (74-106) mg/dL 102 Calcium (8.5-10.1) mg/dL 8.4 L Medical Decision Making Emergent evaluation of decreased oral intake. Patient resides at the [facility] and has been on comfort measures. The reports that she is not been doing any eating. Sounds like her mental status waxes and wanes and might be very dependent on the medication that she has been receiving. The seems to be very clear regarding the family's wishes. He is adamant that the patient is DNR/DNI. And when we talk about what they might want to be done during this hospital trip, he does not want her poked multiple times for IVs, he does not want any invasive procedures or medications like pressors to support her blood pressure. I advised that we will give her a little IV fluids since she was here and return her back to the [facility] and he felt comfortable with that plan. We were not able to get enough blood for a CBC, but her chemistry is not terribly abnormal. She did receive a liter of IV fluids. Her mental status maintained stable in the ED with her being alert with eyes open, but nonverbal. This time she is returned back to the [facility] to resume comfort measures. At this seen that for what ever reason the patient was transported here not by the family's request but by staff there. Quality:[facility] Health Related Social Needs: No Data to Display PFSH All Active Problems (Updated 04/08/25 @ 18:15 by Shell Rivera MD) Decreased oral intake (Acute) Low blood pressure reading (Acute) Social History Smoking/Tobacco Use Status: Never Smoking risk assessment performed?: Yes Alcohol Intake: never Drug use: Never Substance use type: does not use Housing: assisted living facility
== END 2025-04-08 18:39 | disposition home or self-care (01) ==
PROVIDERS: Emergency Provider Emergency Medicine; PCP Legal Medicine
DX: R41.82 Altered mental status, unspecified (principal); I95.9 Hypotension, unspecified; R63.8 Other symptoms and signs concerning food and fluid intake; I10 Essential (primary) hypertension; Z86.73 Personal history of transient ischemic attack (TIA), and cerebral infarction without residual deficits
CPT/HCPCS: 80048; 96360; 99284; 85025; 99283